=== PATIENT | female | born 1965 | race African-American/Black ===

== ENCOUNTER 2017-05-06 22:50 | Observation (INO) | payer MEDICARE, OTHER ==
[2017-05-06 23:05] VITALS: BMI 25.0
--- NOTE | 2017-05-06 23:25 | PDOC ---
History of Present Illness - General Chief Complaint: Pain Stated Complaint: COUGHING Time Seen by Provider: 05/06/17 23:16 - History of Present Illness Initial Comments: 05/06/17 23:20 The patient is a 51 year old female with a history of HTN who presents for evaluation of chest pain. The patient reports a 3 day history of worsening left sided chest pain that began after doing exercises with dumbells. She states that the pain is non-radiating and worse with movement and palpation. She denies similar symptoms in the past and has not tried anything for the pain. She otherwise denies fevers, chills, SOB, nausea, vomiting, abdominal pain, or changes with urination or bowel movements. Past History - Past Medical History Allergies/Adverse Reactions: Allergies Allergy/AdvReac Type Severity Reaction Status Date / Time shellfish derived Allergy Severe Hives Verified 05/06/17 22:59 No Known Drug Allergies Allergy Verified 05/06/17 22:59 Home Medications: Ambulatory Orders Amlodipine Besylate [Norvasc -] 10 mg PO DAILY #30 tablet 05/07/17 Lisinopril [Prinivil] 5 mg PO DAILY #30 tablet 05/07/17 COPD: No Other medical history: Pt denies - Suicide/Smoking/Psychosocial Hx Smoking History: Never smoked Have you smoked in the past 12 months: No Information on smoking cessation initiated: No Hx Alcohol Use: No Drug/Substance Use Hx: No Substance Use Type: None Review of Systems - Review of Systems Comments:: 05/06/17 23:22 Constitutional: No fevers, chills, fatigue, malaise HEENT: No Rhinorrhea, nasal congestion, visual changes Cardiovascular: Chest pain. No syncope, palpitations, lightheadedness Respiratory: No Cough, SOB, Hemoptysis, Gastrointestinal: No Abdominal pain, Nausea, Vomiting, Constipation, Diarrhea, Melena Genitourinary: No Dysuria, Frequency, Urgency, Hesitancy, Hematuria, Flank pain Musculoskeletal: No Myalgia, arthralgia Skin: No rashes, itching, bruising, pallor Neurologic: No Headache, Dizziness, Numbness, Weakness, or Tingling Psychiatric: No Hallucinations. No SI or HI *Physical Exam - Vital Signs Last Vital Signs Temp Pulse Resp BP Pulse Ox 98.0 F 71 18 220/120 100 05/06/17 23:00 05/06/17 23:00 05/06/17 23:00 05/06/17 23:00 05/06/17 23:00 - Physical Exam Comments: 05/06/17 23:22 General Appearance: Nourished. No Apparent Distress HEENT: EOMI, SKYLER. No Pharyngeal Erythema, Tonsillar Exudate, Tonsillar Erythema Neck: No Cervical Lymphadenopathy Respiratory/Chest: Lungs Clear, Normal Breath Sounds. Reproducible tenderness to palpation along the left sternal border. No Crackles, Rales, Rhonchi, Wheezing Cardiovascular: Regular Rhythm, Regular Rate. No Murmur, Gallops, Rubs Gastrointestinal/Abdominal: Normal Bowel Sounds, Soft. No Guarding, Rebound, Tenderness Musculoskeletal: No CVA Tenderness Extremity: Normal Capillary Refill Integumentary: Normal Color, Dry, Warm Neurologic: Fully Oriented, Alert, Normal Mood/Affect, Normal Response, Heart Score/ECG Review #1 ECG reviewed & interpreted by me at: 23:48 (T wave inversions in leads v5-v6) General ECG Interpretation: Sinus Rhythm, Normal Rate, Normal Intervals, No acute ischemic changes ED Treatment Course - LABORATORY CBC & Chemistry Diagram: 05/07/17 06:34 05/07/17 06:34 - RADIOLOGY Radiology Studies Ordered: Category Date Time Status CHEST X-RAY PORTABLE* [RAD] Stat Radiology 05/06/17 23:19 Ordered Medical Decision Making - Medical Decision Making 05/06/17 23:24 The patient is a 51 year old female with a history of HTN who presents for evaluation of chest pain. Differential includes but is not limited to: Musculoskeletal, ACS, Infectious, Metabolic Derangement. Given the patient's history and physical exam with reproducible tenderness to palpation, it is likely her symptoms are musculoskeletal in nature. However, we will obtain a cbc, cmp, troponin, ekg, and chest plain film to evaluate for possible etiologies. We will treat with ibuprofen in the meantime and continue to monitor and reassess. *DC/Admit/Observation/Transfer Diagnosis at time of Disposition: HTN (hypertension), Chest pain - Discharge Dispostion Disposition: HOME Condition at time of disposition: Stable - Prescriptions - Referrals - Patient Instructions - Post Discharge Activity
[2017-05-06 23:43] LABS: BASO % 0.6 % (0-2.0); EOS % 0.7 % (0-4.5); HEMATOCRIT 36.7 % (32.4-45.2); HEMOGLOBIN 12.3 GM/dL (10.7-15.3); LYMPH % 33.8 % (8-40); MCH 29.4 pg (25.7-33.7); MCHC 33.6 g/dl (32.0-36.0); MEAN CELL VOLUME 87.6 fl (80-96); MEAN PLT VOLUME 9.4 fl (7.5-11.1); MONO % 8.4 % (3.8-10.2); NEUT % 56.5 % (42.8-82.8); PLATELET COUNT 190 K/MM3 (134-434); RBC 4.19 M/mm3 (3.60-5.2); WHITE BLOOD COUNT 5.6 K/mm3 (4.0-10.0)
[2017-05-06] MEDS ORDERED: ACETAMINOPHEN 1000 MG/100 ML VIAL (NON FORMULARY) IVPB ONE (23:47)
[2017-05-06] MEDS ORDERED: amLODIPine BESYLATE 10 MG TABLET (FP) PO ONE (23:57)
[2017-05-06] MEDS ORDERED: HYDROCHLOROTHIAZIDE 25 MG TABLET (FP) PO ONE (23:57)
--- NOTE | 2017-05-07 | PDOC ---
History of Present Illness - General Chief Complaint: Pain Stated Complaint: COUGHING Time Seen by Provider: 05/06/17 23:16 - History of Present Illness Initial Comments: 05/06/17 23:59 The patient is a 51 year old female with a history of HTN who presents for evaluation of chest pain. Differential includes but is not limited to: Musculoskeletal, ACS, Infectious, Metabolic Derangement. Given the patient's history and physical exam with reproducible tenderness to palpation, it is likely her symptoms are musculoskeletal in nature. However, we will obtain a cbc, cmp, troponin, ekg, and chest plain film to evaluate for possible etiologies. We will treat with ibuprofen in the meantime and continue to monitor and reassess. Past History - Past Medical History Allergies/Adverse Reactions: Allergies Allergy/AdvReac Type Severity Reaction Status Date / Time shellfish derived Allergy Severe Hives Verified 05/06/17 22:59 No Known Drug Allergies Allergy Verified 05/06/17 22:59 Home Medications: Ambulatory Orders Amlodipine Besylate [Norvasc -] 10 mg PO DAILY #30 tablet 05/07/17 Lisinopril [Prinivil] 5 mg PO DAILY #30 tablet 05/07/17 COPD: No Other medical history: Pt denies - Suicide/Smoking/Psychosocial Hx Smoking History: Never smoked Have you smoked in the past 12 months: No Information on smoking cessation initiated: No Hx Alcohol Use: No Drug/Substance Use Hx: No Substance Use Type: None *Physical Exam - Vital Signs Last Vital Signs Temp Pulse Resp BP Pulse Ox 98.0 F 71 18 220/120 100 05/06/17 23:00 05/06/17 23:00 05/06/17 23:00 05/06/17 23:00 05/06/17 23:00 ED Treatment Course - LABORATORY CBC & Chemistry Diagram: 05/07/17 06:34 05/07/17 06:34 - ADDITIONAL ORDERS Additional order review: 05/06/17 23:36 RBC 4.19 MCV 87.6 MCHC 33.6 RDW 15.0 MPV 9.4 Neutrophils % 56.5 Lymphocytes % 33.8 Monocytes % 8.4 Eosinophils % 0.7 Basophils % 0.6 *DC/Admit/Observation/Transfer Diagnosis at time of Disposition: HTN (hypertension), Chest pain - Discharge Dispostion Disposition: HOME Condition at time of disposition: Stable - Prescriptions - Referrals - Patient Instructions - Post Discharge Activity
--- NOTE | 2017-05-07 00:04 | PDOC ---
Attending Attestation - Resident Resident Name: LashawnFareed - ED Attending Attestation I have performed the following: I have examined & evaluated the patient, The case was reviewed & discussed with the resident, I agree w/resident's findings & plan, Exceptions are as noted - HPI HPI: 05/06/17 23:59 51-year-old female presents with chest pain that is palpable and increases with twisting movement following her use of dumbells in the gym. She's been working with weights using dumbbells in the gym. She has lost 40 pounds with her exercise regiment She has a past medical history of high blood pressure and in the past took the medications for high blood pressure but she stopped the medication after she started exercising and losing weight 05/07/17 00:11 left BP 229/111 right BP 228/100 She DENIES headache,nausea,vomiting,visual changes 05/07/17 01:21 - Physicial Exam PE: 05/07/17 00:12 slender 51 yo female in no acute distress,complaining of muscular chest pain that increases with movement head - ncat eyes - shantal eomi neck - no bruits,no jvd Anterior left chest very tender to palpation,no erythema lungs cta b/l cvs [id number] abdomen nontender,no guarding ext - no edema, she has chronic left forearm swelling -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
[2017-05-07 00:11] LABS: ALBUMIN 3.9 g/dl (3.4-5.0); ANION GAP 9 (8-16); BILIRUBIN,TOTAL 0.6 mg/dL (0.2-1.0); BLOOD UREA NITROGEN 16 mg/dL (7-18); CALCIUM 8.7 mg/dL (8.5-10.1); CHLORIDE 103 mmol/L (98-107); CO2 28 mmol/L (21-32); CREATININE 0.9 mg/dL (0.55-1.02); GLUCOSE,RANDOM 104 mg/dL (74-106); POTASSIUM 3.7 mmol/L (3.5-5.1); SGOT/AST 18 U/L (15-37); SGPT/ALT 22 U/L (12-78); SODIUM 140 mmol/L (136-145)
[2017-05-07] MEDS ORDERED: amLODIPine BESYLATE 5 MG TABLET (FP) ONE ×2 (00:11→09:57)
[2017-05-07] MEDS ORDERED: ACETAMINOPHEN INJECTION 100 ML IVPB ONE (00:12)
[2017-05-07] MEDS ORDERED: HYDROCHLOROTHIAZIDE 25 MG TABLET (FP) ONE (00:12)
[2017-05-07 00:14] LABS: ALK PHOS 89 U/L (45-117); TOT PROT 7.4 g/dl (6.4-8.2)
[2017-05-07 00:46] LABS: URINE APPEARANCE CLEAR; URINE BILIRUBIN NEGATIVE (<2.0 mg/dL); URINE COLOR LTYELLOW; URINE GLUCOSE (UA) NEGATIVE (NEGATIVE); URINE KETONE NEGATIVE (NEGATIVE); URINE LEUK ESTERASE TRACE (NEGATIVE); URINE NITRITE NEGATIVE (NEGATIVE); URINE PROTEIN NEGATIVE (NEGATIVE); URINE UROBILINOGEN NEGATIVE mg/dL (0.2-1.0)
[2017-05-07] MEDS ORDERED: cloNIDine HCL 0.1 MG TABLET PO ONE (01:10)
[2017-05-07] MEDS ORDERED: cloNIDine HCL 0.1 MG TABLET ONE (01:14)
[2017-05-07 01:22] LABS: EPI CELLS RARE /HPF (FEW); URINE MUCUS RARE
[2017-05-07] MEDS ORDERED: FUROSEMIDE 40 MG/4 ML INJECTABLE VIAL IVPUSH ONE (01:56)
[2017-05-07] MEDS ORDERED: hydrALAZINE HCL 20 MG/ML VIAL IVPUSH ONE (02:14)
--- NOTE | 2017-05-07 02:29 | PN ---
Teaching Attending Note Name of Resident: Tanvi Alcala ATTENDING PHYSICIAN STATEMENT I saw and evaluated the patient. I reviewed the resident's note and discussed the case with the resident. I agree with the resident's findings and plan as documented. SUBJECTIVE: 51 yo F with pmhx. of htn, who had stopped her HCTZ because she felt working out was enough, and thought she could control it with diet. States she was lifting weights and going from side to side when she felt the left sided chest pain. No chest pressure. Chest pain was non-radiating and sharp in nature. Denies any nausea, vomiting, or diarrhea. No shortness of breath. No headache, visual changes or lightheadedness/dizziness. No fevers or chills. As per patient her left forearm has had tissue growth for 15 years and has been evaluated and worked up. OBJECTIVE: Physical: VS: Vital Signs Period Temp Pulse Resp BP Sys/Miranda Pulse Ox Last 24 Hr 98.0 F 71 18 210-223/100-120 100 GEN: NAD, Resting in bed, AA0X3 HEENT: NCAT, PERRL, Throat without erythema or exudates CARD: RRR S1, S2 RESP: Chest wall upper left tender upon palpation, RRR S1, S2 ABD: BSx4, NTD to palpation EXT: L. Forearm hypertropy, Pulses inact R. Ext - C/C/E. Bilateral LE - C/C/E CBCD WBC 5.6 K/mm3 (4.0-10.0) 05/06/17 23:36 RBC 4.19 M/mm3 (3.60-5.2) 05/06/17 23:36 Hgb 12.3 GM/dL (10.7-15.3) 05/06/17 23:36 Hct 36.7 % (32.4-45.2) 05/06/17 23:36 MCV 87.6 fl (80-96) 05/06/17 23:36 MCHC 33.6 g/dl (32.0-36.0) 05/06/17 23:36 RDW 15.0 % (11.6-15.6) 05/06/17 23:36 Plt Count 190 K/MM3 (134-434) 05/06/17 23:36 MPV 9.4 fl (7.5-11.1) 05/06/17 23:36 CMP Sodium 140 mmol/L (136-145) 05/06/17 23:36 Potassium 3.7 mmol/L (3.5-5.1) 05/06/17 23:36 Chloride 103 mmol/L (98-107) 05/06/17 23:36 Carbon Dioxide 28 mmol/L (21-32) 05/06/17 23:36 Anion Gap 9 (8-16) 05/06/17 23:36 BUN 16 mg/dL (7-18) 05/06/17 23:36 Creatinine 0.9 mg/dL (0.55-1.02) 05/06/17 23:36 Creat Clearance w eGFR > 60 (>60) 05/06/17 23:36 Random Glucose 104 mg/dL (74-106) 05/06/17 23:36 Calcium 8.7 mg/dL (8.5-10.1) 05/06/17 23:36 Total Bilirubin 0.6 mg/dL (0.2-1.0) 05/06/17 23:36 AST 18 U/L (15-37) 05/06/17 23:36 ALT 22 U/L (12-78) 05/06/17 23:36 Alkaline Phosphatase 89 U/L (45-117) 05/06/17 23:36 Total Protein 7.4 g/dl (6.4-8.2) 05/06/17 23:36 Albumin 3.9 g/dl (3.4-5.0) 05/06/17 23:36 CARDIAC ENZYMES Creatine Kinase 113 IU/L (26-192) 05/06/17 23:36 Troponin I < 0.02 ng/ml (0.00-0.05) 05/06/17 23:36 EKG: NSR, TWI Lateral leads CXR: No Acute Proces ASSESSMENT AND PLAN: 51 F with Pmhx of htn who presented with chest pain, also found to have htn urgency 1.) HTN Urgency- Now Improving - Slowly decrease - IF Headache/Visual changes CT HEAD - Due to Non- Compliancee of medication - Resume home HCTZ - ECHO 2.) Atypical Chest Pain - Most Likely Musculoskelatal - Trend Trops/Ekg - NSAIDS prn for chest wall pain - 02 NC - HEART 4 3.) Dvt PPX - SCDS Place in Obs-Tele
--- NOTE | 2017-05-07 02:35 | PDOC ---
*Physical Exam - Vital Signs Last Vital Signs Temp Pulse Resp BP Pulse Ox 98.0 F 57 L 18 152/90 100 05/06/17 23:00 05/07/17 02:31 05/06/17 23:00 05/07/17 02:31 05/06/17 23:00 - Physical Exam Comments: 05/07/17 02:33 "GENERAL: Awake, alert, and fully oriented, in no acute distress HEAD: No signs of trauma EYES: PERRLA, EOMI, sclera anicteric, conjunctiva clear ENT: Auricles normal inspection, hearing grossly normal, nares patent, oropharynx clear without exudates. Moist mucosa NECK: Nontender, no stepoffs, Normal ROM, supple, no lymphadenopathy, JVD, or masses LUNGS: Breath sounds equal, clear to auscultation bilaterally. No wheezes, and no crackles HEART: Regular rate and rhythm, normal S1 and S2, no murmurs, rubs or gallops ABDOMEN: Soft, nontender, normoactive bowel sounds. No guarding, no rebound. No masses EXTREMITIES: Normal range of motion, no edema. No clubbing or cyanosis. No cords, erythema, or tenderness NEUROLOGICAL: Cranial nerves II through XII intact. 5/5 strength and sensation in all extremities, Normal speech, normal gait, normal cerebellar function SKIN: Warm, Dry, normal turgor, no rashes or lesions noted. " ED Treatment Course - LABORATORY CBC & Chemistry Diagram: 05/06/17 23:36 05/06/17 23:36 - ADDITIONAL ORDERS Additional order review: Laboratory Results 05/07/17 05/06/17 00:35 23:36 Sodium 140 Potassium 3.7 Chloride 103 Carbon Dioxide 28 Anion Gap 9 BUN 16 Creatinine 0.9 Creat Clearance w eGFR > 60 Random Glucose 104 Calcium 8.7 Total Bilirubin 0.6 AST 18 ALT 22 Alkaline Phosphatase 89 Creatine Kinase 113 Troponin I < 0.02 Total Protein 7.4 Albumin 3.9 Urine Color Ltyellow Urine Appearance Clear Urine pH 7.0 Ur Specific [place] 1.010 Urine Protein Negative Urine Glucose (UA) Negative Urine Ketones Negative Urine Blood Negative Urine Nitrite Negative Urine Bilirubin Negative Urine Urobilinogen Negative Ur Leukocyte Esterase Trace Urine WBC (Auto) 2 Urine RBC (Auto) <1 Ur Epithelial Cells Rare Urine Mucus Rare 05/06/17 23:36 RBC 4.19 MCV 87.6 MCHC 33.6 RDW 15.0 MPV 9.4 Neutrophils % 56.5 Lymphocytes % 33.8 Monocytes % 8.4 Eosinophils % 0.7 Basophils % 0.6 - Medications Given in the ED: ED Medications Discontinued Medications Generic Name Dose Route Start Last Admin Trade Name Amador PRN Reason Stop Dose Admin Acetaminophen 1,000 mg 05/06/17 23:47 05/07/17 00:15 Ofirmev Injection - IVPB 05/06/17 23:48 1,000 mg ONCE ONE Administration Amlodipine Besylate 10 mg 05/06/17 23:57 05/07/17 00:15 Norvasc - PO 05/06/17 23:58 10 mg ONCE ONE Administration Clonidine 0.2 mg 05/07/17 01:10 05/07/17 01:15 Catapres - PO 05/07/17 01:11 0.2 mg ONCE ONE Administration Hydrochlorothiazide 25 mg 05/06/17 23:57 05/07/17 00:15 Hctz - PO 05/06/17 23:58 25 mg ONCE ONE Administration Medical Decision Making - Medical Decision Making 05/07/17 02:33 51 F with chest pain, found to be hypertensive in ER to 220/100. Pulses and BP equal in both arms. Pt received multiple antiHTNs in ED (amlodipine, HCTZ, clonidine), with good response. BP now 150/90. Labs wnl. EKG notable for lateral TWIs. Pt admitted to hospitalist. *DC/Admit/Observation/Transfer Diagnosis at time of Disposition: HTN (hypertension), Chest pain - Discharge Dispostion Admit: Yes - Referrals - Patient Instructions - Post Discharge Activity - Attestations Physician Attestion: 05/07/17 02:35 I, Dr. Zack Oscar MD, attest that this document has been prepared under my direction and personally reviewed by me in its entirety. I further attest, that it accurately reflects all work, treatment, procedures and medical decision -making performed by me.
[2017-05-07] MEDS ORDERED: morphine CARPU-JECT 2 MG/1 ML DISP.SYRIN IVPUSH PRN (03:40)
[2017-05-07] MEDS ORDERED: NITROGLYCERIN SUBLINGUAL 1/200 0.3 MG BTL SL SCH (03:45)
--- NOTE | 2017-05-07 03:48 | HP ---
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 As per patient, her chest pain developed a day after she lifted twelve pound dumbbells via rotation exercises. Her pain is in the L sternal area, sharp, and was initially a 10/10. It did not radiate, was alleviated by ibuprofen and exacerbated by movement. Pt became concerned since it worsened over the three days, so she decided to come to the ED for further evaluation. During this time , pt also endorses LUE soreness a/w weight lifting. She denies CORTEZ, fever, chills , SOB, visual changes, abdominal pain, N/V, diaphoresis, or changes in urinary or bowel function. ER course was notable for: (1) BP 220/110 (2) norvasc 10mg x 1 (3) clonidine 0.2mg x 1 (4) HCTZ 25mg x 1 Recent Travel: none PAST MEDICAL HISTORY: as above PAST SURGICAL HISTORY: hysterectomy - age 32 Social History: currently working; takes care of elderly. states job has not been strenuous and does not involve heavy lifting. Smoking: denies Alcohol: denies Drugs: denies Family History: mother - HTN, passed from stroke age 72. uncle and aunt- DM. other uncle- [place] Allergies shellfish derived Allergy (Severe, Verified 05/06/17 22:59) Hives, throat closure HOME MEDICATIONS: none REVIEW OF SYSTEMS CONSTITUTIONAL: Absent: fever, chills, diaphoresis, generalized weakness, malaise, loss of appetite, weight change HEENT: Absent: rhinorrhea, nasal congestion, throat pain, throat swelling, difficulty swallowing, mouth swelling, ear pain, eye pain, visual changes CARDIOVASCULAR: +chest pain Absent: chest pain, syncope, palpitations, irregular heart rate, lightheadedness , peripheral edema RESPIRATORY: Absent: cough, shortness of breath, dyspnea with exertion, orthopnea, wheezing, stridor, hemoptysis GASTROINTESTINAL: Absent: abdominal pain, abdominal distension, nausea, vomiting, diarrhea, constipation, melena, hematochezia GENITOURINARY: Absent: dysuria, frequency, urgency, hesitancy, hematuria, flank pain, genital pain MUSCULOSKELETAL: Absent: myalgia, arthralgia, joint swelling, back pain, neck pain SKIN: Absent: rash, itching, pallor HEMATOLOGIC/IMMUNOLOGIC: Absent: easy bleeding, easy bruising, lymphadenopathy, frequent infections ENDOCRINE: Absent: unexplained weight gain, unexplained weight loss, heat intolerance, cold intolerance NEUROLOGIC: Absent: headache, focal weakness or paresthesias, dizziness, unsteady gait, seizure, mental status changes, bladder or bowel incontinence PSYCHIATRIC: Absent: anxiety, depression, suicidal or homicidal ideation, hallucinations. PHYSICAL EXAMINATION Vital Signs 05/06/17 05/07/17 05/07/17 23:00 01:00 01:41 Temperature 98.0 F Pulse Rate 71 Pulse Rate [ Apical] Respiratory 18 Rate Blood Pressure 220/120 Blood Pressure 210/110 223/100 [Right Arm] O2 Sat by Pulse 100 Oximetry (%) 05/07/17 02:31 Temperature Pulse Rate Pulse Rate [ 57 L Apical] Respiratory Rate Blood Pressure Blood Pressure 152/90 [Right Arm] O2 Sat by Pulse Oximetry (%) GENERAL: Sitting comfortably. Awake, alert, and fully oriented, in no acute distress. HEAD: Normal with no signs of trauma. EYES: Pupils equal, round and reactive to light, extraocular movements intact, sclera anicteric, conjunctiva clear. EARS, NOSE, THROAT: Ears normal, nares patent, oropharynx clear without exudates. Moist mucous membranes. NECK: Normal range of motion, supple LUNGS: Breath sounds equal, clear to auscultation bilaterally. No wheezes, and no crackles. No accessory muscle use. HEART: Regular rate and rhythm, normal S1 and S2 without murmur, rub or gallop. CHEST: +reproducible chest pain- L anterior chest wall ABDOMEN: Soft, nontender, not distended, normoactive bowel sounds, no guarding, no rebound, no masses. MUSCULOSKELETAL: Normal range of motion at all joints. No bony deformities or tenderness. No CVA tenderness. UPPER EXTREMITIES: 2+ radial pulses, warm, well-perfused. No cyanosis. +LUE soft tissue hypertrophy LOWER EXTREMITIES: 2+ posterior tibial pulses, warm, well-perfused. No calf tenderness. No peripheral edema. NEUROLOGICAL: Cranial nerves II-XII intact. PSYCHIATRIC: Cooperative. Laboratory Results - last 24 hr 05/06/17 05/06/17 05/07/17 23:36 23:36 00:35 WBC 5.6 RBC 4.19 Hgb 12.3 Hct 36.7 MCV 87.6 MCH 29.4 MCHC 33.6 RDW 15.0 Plt Count 190 MPV 9.4 Neutrophils % 56.5 Lymphocytes % 33.8 Monocytes % 8.4 Eosinophils % 0.7 Basophils % 0.6 Sodium 140 Potassium 3.7 Chloride 103 Carbon Dioxide 28 Anion Gap 9 BUN 16 Creatinine 0.9 Creat Clearance w eGFR > 60 Random Glucose 104 Calcium 8.7 Total Bilirubin 0.6 AST 18 ALT 22 Alkaline Phosphatase 89 Creatine Kinase 113 Troponin I < 0.02 Total Protein 7.4 Albumin 3.9 Urine Color Ltyellow Urine Appearance Clear Urine pH 7.0 Ur Specific [place] 1.010 Urine Protein Negative Urine Glucose (UA) Negative Urine Ketones Negative Urine Blood Negative Urine Nitrite Negative Urine Bilirubin Negative Urine Urobilinogen Negative Ur Leukocyte Esterase Trace Urine WBC (Auto) 2 Urine RBC (Auto) <1 Ur Epithelial Cells Rare Urine Mucus Rare TESTS EKG: NSR, vent rate 65bpm, tw inversions V5-v6 lateral. Qtc 420 ms CXR: without infiltrates. 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 Pt admitted to tele-obs for HTN urgency, atypical chest pain. #HTN Urgency 2/2 medication non-compliance -In ED, pt with BP 220/110 -without sx complaints - CORTEZ, visual changes -Resolved with norvasc 10mg, clonidine 0.2mg, HCTZ 25mg -Will start on HCTZ 25mg PO qd -Telemetry monitoring -Reassess and can adjust accordingly -If pt develops CORTEZ, visual changes - CT head recommended #Atypical chest pain likely MSK -Pt with reproducible chest pain -HEART score 4 -EKG with TWI v5-v6 - lateral ischemia -Continue to follow EKG. Repeat EKG sched for 10AM -Initial trop (-) continue to check q6h - next trop 6AM -F/u ECHO -ibuprofen 600mg q4h PRN for pain #F/E/N -does not need IVF at this time -Monitor electrolytes -Na controlled diet #PPX DVT: SCD's #Dispo tele-obs Visit type - Emergency Visit Emergency Visit: Yes ED Registration Date: 05/07/17 Care time: The patient presented to the Emergency Department on the above date and was hospitalized for further evaluation of their emergent condition. - New Patient This patient is new to me today: Yes Date on this admission: 05/07/17 - Critical Care Critical Care patient: No Hospitalist Screening - Colonoscopy Questionnaire Colonoscopy Questionnaire: Colonoscopy Questionnaire - Patient: 50 - 75 years old and never had a screening colonoscopy: Unknown History of colon or rectal polyps, or CA: Unknown History of IBD, Crohn's disease or UC: Unknown History of abdominal radiation therapy as a child: Unknown - Relative: 1 with colon or rectal CA, or polyps at age 60 or younger: Unknown Colon or rectal CA diagnosed at age 45 or younger: Unknown Multiple relatives with colon or rectal CA: Unknown - Outcome: Screening Result: Negative Screen
[2017-05-07] MEDS ORDERED: IBUPROFEN 600 MG TABLET (FP) PO PRN (04:43)
[2017-05-07 05:40] VITALS: TEMP 98.3
[2017-05-07 07:02] LABS: BASO % 0.6 % (0-2.0); HEMATOCRIT 34.9 % (32.4-45.2); HEMOGLOBIN 11.8 GM/dL (10.7-15.3); LYMPH % 40.5 % (8-40); MCH 29.4 pg (25.7-33.7); MCHC 33.8 g/dl (32.0-36.0); MEAN PLT VOLUME 9.4 fl (7.5-11.1); MONO % 9.9 % (3.8-10.2); PLATELET COUNT 205 K/MM3 (134-434); RDW 14.4 % (11.6-15.6); WHITE BLOOD COUNT 4.4 K/mm3 (4.0-10.0)
[2017-05-07 07:31] LABS: ANION GAP 10 (8-16); BLOOD UREA NITROGEN 14 mg/dL (7-18); CALCIUM 8.7 mg/dL (8.5-10.1); CHLORIDE 103 mmol/L (98-107); CO2 29 mmol/L (21-32); CREATININE 0.8 mg/dL (0.55-1.02); GLUCOSE,RANDOM 96 mg/dL (74-106); MAGNESIUM 2.3 mg/dL (1.8-2.4); POTASSIUM 3.3 mmol/L (3.5-5.1); SODIUM 142 mmol/L (136-145)
[2017-05-07] MEDS ORDERED: METOPROLOL TARTRATE 25 MG TABLET (FP) PO SCH (10:00)
[2017-05-07] MEDS ORDERED: LISINOPRIL 5 MG TABLET (FP) PO SCH (10:00)
[2017-05-07] MEDS ORDERED: amLODIPine BESYLATE 10 MG TABLET (FP) PO SCH (10:00)
[2017-05-07] MEDS ORDERED: HYDROCHLOROTHIAZIDE 12.5 MG CAPSULE (FP) PO SCH (10:00)
[2017-05-07] MEDS ORDERED: HYDROCHLOROTHIAZIDE 25 MG TABLET (FP) PO SCH (10:00)
[2017-05-07] MEDS ORDERED: ASPIRIN COATED 81 MG TABLET.EC PO SCH (10:00)
[2017-05-07] MEDS ORDERED: POTASSIUM CHLORIDE ORAL LIQUID 20 MEQ/15 ML PO ONE (10:01)
--- NOTE | 2017-05-07 12:24 | EKG ---
Test Reason : Blood Pressure : / mmHG Vent. Rate : 059 BPM Atrial Rate : 059 BPM P-R Int : 148 ms QRS Dur : 078 ms QT Int : 420 ms P-R-T Axes : -12 064 174 degrees QTc Int : 415 ms SINUS BRADYCARDIA T WAVE ABNORMALITY, CONSIDER LATERAL ISCHEMIA ABNORMAL ECG WHEN COMPARED WITH ECG OF 06-MAY-2017 23:45, NO SIGNIFICANT CHANGE WAS FOUND Confirmed by PAULINO MARTINEZ MD ([id number]) on 05/07/2017 12:24:52 PM Referred By: Confirmed By:PAULINO MARTINEZ MD
--- NOTE | 2017-05-07 14:47 | PN ---
Teaching Attending Note Name of Resident: Tiara Sidhu ATTENDING PHYSICIAN STATEMENT I saw and evaluated the patient. I reviewed the resident's note and discussed the case with the resident. I agree with the resident's findings and plan as documented. SUBJECTIVE:has chest discomfort but improved since admission. admits to lifting weights on day CP began and noted that her arm has been sore in addition to CP. very active exercising. no CP or SOB when running on treadmill. not a smoker, family hx iwth no significant heart disease. denies CP, SOB, fever, chills, N/V/ C/D OBJECTIVE: Last Vital Signs Temp Pulse Resp BP Pulse Ox 98.3 F 61 17 146/90 97 05/07/17 05:40 05/07/17 13:13 05/07/17 13:13 05/07/17 13:13 05/07/17 13:13 General NAD CV S1 S2 RRR no murmur/rub/gallop +chest wall tenderness Lungs CTA B/L no wheezing/rales/rhonchi Extremities LUE hypertrophy of soft tissue limited from elbow to wrist, pulses intact non tender ASSESSMENT AND PLAN: 51yo F wtih PMH HTN presented to the ER with CP and found to have HTN urgency 1. HTN urgency- received norvasc 10mg/clonidine 0.2mg/HCTZ 25mg last night. improved. will cont with norvasc 10mg and lisinopril 5mg. would monitor on this regimen and see if controlled. will likely require further adjustment. echo pending 2. CP- likely muscular. cardiac enzymes neg x2. unlikley cardiac and from muscle strain. works out regularly and does not have CP or SOB during exercise 3. L arm hypertrophy- congenital 4. d/c plan today pending echo results
[2017-05-07 16:00] VITALS: BP 150/84; PULSE 66
--- NOTE | 2017-05-07 18:33 | DS ---
Physical Exam: SUBJECTIVE: Patient seen and examined. Reports improvement of chest discomfort. Denies CP, SOB, fever, chills, N/V/C/D OBJECTIVE: Vital Signs Period Temp Pulse Resp BP Sys/Miranda Pulse Ox Last 24 Hr 98.0 F-98.3 F 55-71 15-18 140-223/79-120 97-100 PHYSICAL EXAM CV S1 S2 RRR no murmur/rub/gallop +chest wall tenderness Lungs CTA B/L no wheezing/rales/rhonchi Extremities LUE hypertrophy of soft tissue limited from elbow to wrist, pulses intact non tender GENERAL: aaox3, nad LUNGS: CTAB HEART: rrr, normal s1/s2, no m/r/g ABDOMEN: soft, NTND MSK: anterior chest wall +TTP EXTREMITIES: wwp, no edema LABS Laboratory Results - last 24 hr 05/06/17 05/06/17 05/07/17 23:36 23:36 00:35 WBC 5.6 RBC 4.19 Hgb 12.3 Hct 36.7 MCV 87.6 MCH 29.4 MCHC 33.6 RDW 15.0 Plt Count 190 MPV 9.4 Neutrophils % 56.5 Lymphocytes % 33.8 Monocytes % 8.4 Eosinophils % 0.7 Basophils % 0.6 Sodium 140 Potassium 3.7 Chloride 103 Carbon Dioxide 28 Anion Gap 9 BUN 16 Creatinine 0.9 Creat Clearance w eGFR > 60 Random Glucose 104 Calcium 8.7 Phosphorus Magnesium Total Bilirubin 0.6 AST 18 ALT 22 Alkaline Phosphatase 89 Creatine Kinase 113 Troponin I < 0.02 Total Protein 7.4 Albumin 3.9 Urine Color Ltyellow Urine Appearance Clear Urine pH 7.0 Ur Specific Dickens 1.010 Urine Protein Negative Urine Glucose (UA) Negative Urine Ketones Negative Urine Blood Negative Urine Nitrite Negative Urine Bilirubin Negative Urine Urobilinogen Negative Ur Leukocyte Esterase Trace Urine WBC (Auto) 2 Urine RBC (Auto) <1 Ur Epithelial Cells Rare Urine Mucus Rare 05/07/17 05/07/17 05/07/17 06:34 06:34 11:21 WBC 4.4 RBC 4.00 Hgb 11.8 Hct 34.9 MCV 87.0 MCH 29.4 MCHC 33.8 RDW 14.4 Plt Count 205 MPV 9.4 Neutrophils % 48.0 Lymphocytes % 40.5 H Monocytes % 9.9 Eosinophils % 1.0 Basophils % 0.6 Sodium 142 Potassium 3.3 L Chloride 103 Carbon Dioxide 29 Anion Gap 10 BUN 14 Creatinine 0.8 Creat Clearance w eGFR Random Glucose 96 Calcium 8.7 Phosphorus 4.0 Magnesium 2.3 Total Bilirubin AST ALT Alkaline Phosphatase Creatine Kinase 92 98 Troponin I < 0.02 < 0.02 Total Protein Albumin Urine Color Urine Appearance Urine pH Ur Specific Dickens Urine Protein Urine Glucose (UA) Urine Ketones Urine Blood Urine Nitrite Urine Bilirubin Urine Urobilinogen Ur Leukocyte Esterase Urine WBC (Auto) Urine RBC (Auto) Ur Epithelial Cells Urine Mucus HOSPITAL COURSE: Date of Admission:05/07/17 Date of Discharge: 05/07/17 Pre-Hospital Course: 51 y/o F PMH HTN (diagnosed age 19; currently not on medication; was on lowest dose of HCTZ for years prior, stopped d/t attempted lifestyle modification- exercise and diet), LUE soft tissue hypertrophy (has had for 15 yrs) who presents to the ED c/o worsening chest pain over the past three days. As per patient, her chest pain developed a day after she lifted twelve pound dumbbells via rotation exercises. Her pain is in the L sternal area, sharp, and was initially a 10/10. It did not radiate, was alleviated by ibuprofen and exacerbated by movement. Pt became concerned since it worsened over the three days, so she decided to come to the ED for further evaluation. During this time , pt also endorses LUE soreness a/w weight lifting. She denies CORTEZ, fever, chills , SOB, visual changes, abdominal pain, N/V, diaphoresis, or changes in urinary or bowel function. ER course was notable for: (1) BP 220/110 (2) norvasc 10mg x 1 (3) clonidine 0.2mg x 1 (4) HCTZ 25mg x 1 Subsequent Hospital Course: Patient observed overnight for hypertensive urgency and complaint of CP. She received Norvasc 10mg, Clonidine 0.2mg, and HCTZ 25mg in the ED with improvement of her BP. She was discharged on Norvasc 10mg and Lisinopril 5mg daily with instructions to f/u with PMD and understanding that current regiment may need further adjustment. For CP, patient admitted to recently started lifting weights and pain started on day begin lifting with associated arm soreness. Denies any CP or SOB when running on treadmill. Troponins neg x2. 2D ECHO wnl: LV normal size and systolic function, EF =>70%, No RWA, RV systolic function nml, LA normal size, mild to mod TR, mild PA, trivial pericardial effusion, not hemodynamically significant. Minutes to complete discharge: 45 Discharge Summary Reason For Visit: HYPERTENSION CHEST PAIN Condition: Stable - Instructions Diet, Activity, Other Instructions: You were found to have very high blood pressure (220/110), and started on two different medications. Please take these medications regularly as directed (see details below). You were also having chest pain. Blood work and an ultrasound of your heart were all found to be normal. Recommendations: -You may resume light daily activities. Avoid heavy lifting or exercises that make your chest pain worse. Continue eating a low salt diet. Medications: -Start taking lisinopril 5mg daily. Notify your doctor if any new cough, rash, or decreased urination is noted. -Start taking amlodipine 10mg daily. Follow-ups: -Make an appointment at [facility] to see your primary care physician within 1 week for post-hospitalization evaluation. If you would like to see a different doctor, a referral to our clinic is provided (Dr. Valle). Please return to the Emergency Room if you have worsening chest pain, chest discomfort, shortness of breath, headache, vision changes, or any new or concerning symptoms. Referrals: Gil Valle MD [Staff Physician] - Disposition: HOME - Home Medications Comprehensive Discharge Medication List: Ambulatory Orders Amlodipine Besylate [Norvasc -] 10 mg PO DAILY #30 tablet 05/07/17 Lisinopril [Prinivil] 5 mg PO DAILY #30 tablet 05/07/17 This patient is new to me today: Yes Date on this admission: 05/07/17 Emergency Visit: No Critical Care patient: No - Discharge Referral Referred to [facility] No
--- NOTE | 2017-07-02 10:42 | EKG ---
Test Reason : Blood Pressure : / mmHG Vent. Rate : 065 BPM Atrial Rate : 065 BPM P-R Int : 138 ms QRS Dur : 082 ms QT Int : 404 ms P-R-T Axes : -11 071 -12 degrees QTc Int : 420 ms POOR DATA QUALITY, INTERPRETATION MAY BE ADVERSELY AFFECTED NORMAL SINUS RHYTHM T WAVE ABNORMALITY, CONSIDER LATERAL ISCHEMIA ABNORMAL ECG NO PREVIOUS ECGS AVAILABLE Confirmed by RAEGAN ZIMMERMAN MD ([id number]) on 05/07/2017 2:49:03 PM Also confirmed by RAEGAN ZIMMERMAN MD ([id number]), design editor YARITZA RAMIREZ ([id number]) on 07/02/2017 10:42:31 AM Referred By: Confirmed By:RAEGAN ZIMMERMAN MD
== END 2017-05-07 16:00 | disposition home or self-care (01) ==
LOC: JER 22:50 → JERBED 05-07 02:35
PROVIDERS: ADMIT Internal Medicine; ATTEND Internal Medicine
DX: I16.0 Hypertensive urgency (principal); R07.89 Other chest pain; Z91.14 Patient's other noncompliance with medication regimen
CPT/HCPCS: 36415; 71045-TC-FY; 80048; 80053; 81003; 81015; 82550; 83735; 84100; 84484; 85025; 93005; 93010; 93306-TC; 99283-25; G0378; J0131; J0735

== ENCOUNTER 2017-06-25 07:40 | Day surgery (SDC) | payer OTHER ==
[2017-06-22 15:25] VITALS: BMI 23.9
--- NOTE | 2017-06-25 09:55 | PROC ---
Endoscopy Procedure Endoscopy procedure completed. Please see scanned procedure report.
[2017-06-25 10:28] VITALS: PULSE 56
[2017-06-25 11:20] VITALS: BP 140/82; TEMP 97.9
== END 2017-06-25 11:15 | disposition home or self-care (01) ==
LOC: JASU-ENDO 07:40
PROVIDERS: ATTEND Internal Medicine Gastroenterology
PROC: 0DJD8ZZ Inspection of Lower Intestinal Tract, Via Natural or Artificial Opening Endoscopic (ICD-10-PCS; principal; 2017-06-25 09:00)
DX: Z12.11 Encounter for screening for malignant neoplasm of colon (principal); K64.8 Other hemorrhoids